=== PATIENT | male | born 1995 | race Caucasian/White ===

== ENCOUNTER 2022-12-04 06:59 | Emergency (ER) | payer OTHER, SELFPAY ==
[2022-12-04 07:01] VITALS: BP 119/47; PULSE 57; RESP 16; TEMP 36.2; O2SAT 96; BMI 24.3
--- OUTSIDE RECORDS SUMMARY | 2022-12-04 07:12 | XMS_ITS | Continuity of Care Document ---
Author Name Unknown Organization [facility] Primary [facility] [place] Address [address] [place] [address]- Care Team Providers Care Quill Machine Operator Name Role Phone Ole Alvares Primary Care Physician Encounter [facility] Date(s): 05/19/22 - 06/18/[address] [address] Allergies, Adverse Reactions, Alerts No Known Medication Allergies Social History Social History Type Response Smoking Status Never (less than 100 in lifetime) entered on: 05/01/22 Sex Patient Care team information Care Team Personnel Name: Ole Alvares Position: [facility] PCO Associate Professional Member Role: PCP Address: Address: [address] [place] [id number] Care Team Related Persons Name: JEWELL CHILDRESS
--- OUTSIDE RECORDS SUMMARY | 2022-12-04 07:12 | XMS_ITS | Continuity of Care Document ---
Author Name Unknown Organization [facility] Address [address] [place] [id number]- Care Team Providers Care Purchasing Internship Name Role Phone Ole Alvares Primary Care Physician Encounter [facility] Date(s): 05/01/22 - 05/31/22 [facility] [address] [place] [id number]- Allergies, Adverse Reactions, Alerts No Known Medication Allergies Social History Social History Type Response Smoking Status Never (less than 100 in lifetime) entered on: 05/01/22 Sex Patient Care team information Care Team Personnel Name: Ole Alvares Position: S PCO Associate Professional Member Role: PCP Address: Address: [address] [place] [address] [place] [address]- Care Team Related Persons Name: JEWELL CHILDRESS
--- OUTSIDE RECORDS SUMMARY | 2022-12-04 07:13 | XMS_ITS | Continuity of Care Document ---
Author Name Unknown Organization [facility] Primary [place] Address [address] [place] [address]- Care Team Providers Care Gravedigger Name Role Phone Not on Staff, PCP Primary Care Physician Unavail able [id number] Date(s): 03/25/21 - 04/24/21 [facility] Primary [place] [address] [place], [place] [address]
--- OUTSIDE RECORDS SUMMARY | 2022-12-04 07:13 | XMS_ITS | Continuity of Care Document ---
Author Name Unknown Organization [facility] Primary [facility] Address [address] [place] [address]- Care Team Providers Care Life Assurance Representative Name Role Phone Ole Alvares Primary Care Physician [phone] [facility] Date(s): 07/29/22 - 08/28/[address] [address] Allergies, Adverse Reactions, Alerts No Known Medication Allergies Social History Social History Type Response Smoking Status Never (less than 100 in lifetime) entered on: 05/01/22 Sex Patient Care team information Care Team Personnel Name: Ole Alvares Position: [facility] PCO Associate Professional Member Role: PCP Address: Address: [address] [place] [id number] Care Team Related Persons Name: JEWELL CHILDRESS
--- NOTE | 2022-12-04 07:33 | ED.WOUNDLAC ---
HPI - Wound/Laceration General Chief Complaint: Wound/Laceration Stated Complaint: Lac on eyebrow Time Seen by Provider: 12/04/22 07:25 Source: patient Mode of arrival: ambulatory Limitations: no limitations History of Present Illness HPI narrative: Doing mixed martial arts got kneed to eyebrow 13 hours ago. Up to date with tetanous Onset (ago): hour(s) (13) Location: other (left eyebrow) Context: accidental Related Data Allergies Allergy/AdvReac Type Severity Reaction Status Date / Time No Known Allergies Allergy Verified 12/04/22 07:00 Review of Systems Review of Systems: Yes all other systems are reviewed and are negative Neurologic: Denies Sensory deficit (Neuro) [facility] Social History Social History Advance Directives: No Physical Exam Vital Signs: Vital Signs: Last Vital Signs Temp 97.1 F 12/04/22 07:01 Pulse 57 12/04/22 07:01 Resp 16 12/04/22 07:01 BP 119/47 L 12/04/22 07:01 Pulse Ox 96 12/04/22 07:01 O2 Del Method Room Air 12/04/22 07:01 BMI result Body Mass Index 24.3 Const: General: healthy appearing Nutritional Appearance: average body habitus Orientation/consciousness: oriented to person and patient oriented x3 Limitations: no limitations HEENT: Other: 3cm left eyebrow laceration Head: Yes normal to inspection Ears: external ears normal General nose exam: Normal external nose present Mouth: Normal oral and palatal mucosa present and oropharynx normal Throat: Yes posterior oropharynx normal Eyes: General: appearance normal, both eyes and all related structures Neck: Other: supple Neck: Yes normal visual inspection Chest: Chest palpation & inspection: normal inspection of the chest Skin: Other: 4cm left eyebrow laceration Neuro: General: oriented to person and patient oriented x3 Cranial nerves: Yes CN's II-XII intact bilaterally Motor exam (neuro): 5/5 motor strength present throughout Sensory Exam: No Sensory deficit (Neuro) Extrem: General: Yes normal to inspection Psych: Appearance: grossly normal Course Reevaluation(s) Reevaluation #1: procedure: dermabond used to close eyebrow. Laceration slightly open due to 13 hours since injury Time: 07:40 Medical Decision Making Differential Diagnosis Differential Diagnoses: The differential diagnosis associated with the presentation includes (concussion, eyebrow laceration, cerebral bleed) Independent Historian Clinical information obtained from an independent historian. History obtained from or confirmed by: Friend Tests considered The following testing was considered but not selected: Head CT considered but no LOC, patient non focal so head CT not performed. Discharge Plan Discharge Clinical Impression: Laceration Patient Disposition: Home, Self-Care Instructions: Skin Adhesive Care (ED) Referrals: Ole Kimball PA [Primary Care Provider] - 1 week
== END 2022-12-04 08:08 | disposition home or self-care (01) ==
PROVIDERS: Emergency Provider Emergency Medicine; PCP Physician Assistant
DX: S01.112A Laceration without foreign body of left eyelid and periocular area, initial encounter (principal); X58.XXXA Exposure to other specified factors, initial encounter; Y93.9 Activity, unspecified; Y92.9 Unspecified place or not applicable; Y99.9 Unspecified external cause status
CPT/HCPCS: 12013; 99282; 99284